=== PATIENT | male | born 1995 | race African-American/Black ===

== ENCOUNTER 2018-03-01 14:57 | Emergency (ER) | payer BC ==
[~2018-03-01] VITALS: Ht 185.4 cm; Wt 86.2 kg
[2018-03-01] MEDS ORDERED: MOBIC7.5 MG PO (16:38)
[2018-03-01] MEDS ORDERED: MEDROLDOSEPACK PO (16:38)
[2018-03-01] MEDS ORDERED: NORFLEX100 MG PO (16:39)
[2018-03-01 17:05] VITALS: BP 126/80
== END 2018-03-01 17:06 | disposition home or self-care (01) ==
LOC: ER 14:57
DX: S16.1XXA Strain of muscle, fascia and tendon at neck level, initial encounter (principal); M54.12 Radiculopathy, cervical region; V89.2XXA Person injured in unspecified motor-vehicle accident, traffic, initial encounter; Y92.89 Other specified places as the place of occurrence of the external cause; Y93.89 Activity, other specified; Y99.8 Other external cause status

== ENCOUNTER 2020-10-08 10:19 | Emergency (ER) | payer BC ==
[~2020-10-08] VITALS: Ht 185.4 cm; Wt 86.2 kg
[~2020-10-08 10:19] MED LIST: MEDROLDOSEPACK PO; MOBIC7.5 MG PO; NORFLEX100 MG PO
[2020-10-08 11:15] LABS: ABSOLUTE NEUTROPHILS 7.4 thou/uL (1.4-8.2); BASOPHILS 0.5 % (0.0-2.0); EOSINOPHILS 0.5 % (0.0-3.0); HEMATOCRIT 40.4 % (42.0-52.0); HEMOGLOBIN 14.1 gm/dL (14.0-18.0); MCH 31.8 pg (26.0-34.0); MCHC 34.9 g/dL (28.0-37.0); MCV 91.1 fL (80.0-100.0); MONOCYTES 11.5 % (1.0-8.0); PLATELET COUNT 161 thou/uL (150-400); POLYS 76.5 % (36.0-66.0); RBC 4.44 mil/uL (4.50-6.00); RDW 12.5 % (10.5-14.5); WBC 9.6 thou/uL (4.0-11.0)
[2020-10-08 11:28] LABS: CALCIUM 9.1 mg/dL (8.5-10.1)
[2020-10-08] MEDS ORDERED: CEPHALEXIN500 MG PO (12:58)
[2020-10-08] MEDS ORDERED: NORCO 10-325 T1 EACH PO (12:58)
[2020-10-08 13:15] VITALS: BP 145/88
== END 2020-10-08 13:16 | disposition home or self-care (01) ==
LOC: ER 10:19
PROVIDERS: Emergency Medicine
DX: S42.461A Displaced fracture of medial condyle of right humerus, initial encounter for closed fracture (principal); Z79.899 Other long term (current) drug therapy; W18.39XA Other fall on same level, initial encounter; Y93.29 Activity, other involving ice and snow; Y92.89 Other specified places as the place of occurrence of the external cause; Y99.8 Other external cause status